=== PATIENT | female | born 1995 | race Hispanic/Latino ===

== ENCOUNTER 2021-01-28 17:28 | Emergency (ER) | payer SELFPAY ==
[~2021-01-28] VITALS: Ht 157.5 cm; Wt 53.5 kg
[2021-01-28 17:59] LABS: COLOR,URINE AMBER (YELLOW)
[2021-01-28 18:00] LABS: CLARITY,URINE SL CLOUDY (CLEAR); KETONES,URINE NEGATIVE (NEGATIVE); LEUKOCYTE ESTERASE ,URINE NEGATIVE (NEGATIVE); NITRITE,URINE NEGATIVE (NEGATIVE); PROTEIN,URINE DIPSTICK 1+ (NEGATIVE); URINE UROBILINOGEN 0.2 mg/dL (0.2 - 1)
[2021-01-28 18:10] LABS: BACTERIA,URINE FEW /HPF; EPITHELIAL CELLS,URINE RARE /LPF; MUCUS,URINE FEW (RARE)
== END 2021-01-28 19:02 | disposition home or self-care (01) ==
LOC: ER 18:00
DX: N94.6 Dysmenorrhea, unspecified (principal); N92.0 Excessive and frequent menstruation with regular cycle; F17.210 Nicotine dependence, cigarettes, uncomplicated
CPT/HCPCS: 81001; 81025; 99283

== ENCOUNTER 2021-02-04 18:18 | Emergency (ER) | payer SELFPAY ==
[~2021-02-04] VITALS: Ht 157.5 cm; Wt 53.5 kg
[2021-02-04 19:05] LABS: CLARITY,URINE CLEAR (CLEAR); COLOR,URINE YELLOW (YELLOW); KETONES,URINE NEGATIVE (NEGATIVE); LEUKOCYTE ESTERASE ,URINE NEGATIVE (NEGATIVE); NITRITE,URINE NEGATIVE (NEGATIVE); PROTEIN,URINE DIPSTICK NEGATIVE (NEGATIVE); URINE UROBILINOGEN 0.2 mg/dL (0.2 - 1)
[2021-02-04 19:15] LABS: BACTERIA,URINE RARE /HPF; EPITHELIAL CELLS,URINE MODERATE /LPF
[2021-02-04] MEDS ORDERED: METHOCARBAMOL750 MG PO (21:30)
== END 2021-02-04 22:00 | disposition home or self-care (01) ==
LOC: ER 18:51
DX: M54.5 Low back pain (principal)
CPT/HCPCS: 74176; 81001; 81025; 99283